=== PATIENT | female | born 1980 | race African-American/Black ===

== ENCOUNTER 2017-10-02 06:40 | Emergency (ER) | payer OTHER ==
[~2017-10-02] VITALS: Ht 157.5 cm; Wt 97.5 kg
[~2017-10-02 06:40] MED LIST: ALBUTEROL INHAL17 GM IH; BENADRYL25 MG PO; COLACE1 EAC1 PO; CONSTULOSE10 GM/152 PO; COZAAR 25 MG TA25 M2 PO; FLAGYL500 MG PO; FLEXERIL PO; HYDROCHLOROTH12.5 MG PO; IBUPROFEN 600600 M1 PO; IBUPROFEN 800800 M1 PO; IRON325 PO; LISINOPRIL20 MG PO; MACROBID 100 M100 M1 PO; MECLIZINE 25 MG25 M1; MEDROLDOSEPACK PO; NEXIUM40 MG PO; NORCO 5-325 TA1 EACH PO; PERCOCET 5-3251 EACH PO; PHENERGAN 25 MG25 M1 PO; POTASSIUM PO; PREDNISONE50 MG PO; PRENATAL; PRENATAL COMPL1 EACH PO; PROAIR HFA8.5 GM IH; ULTRAM 50MG TAB50 MG PO; ZANTAC 150MG T150 M1 PO; ZANTAC 150MG T150 MG PO; ZOFRAN ODT4 MG PO; ZPAK PO; tamiflu PO
[2017-10-02 07:05] LABS: ABSOLUTE NEUTROPHILS 7.9 thou/uL (1.4-8.2); BASOPHILS 0.7 % (0.0-2.0); EOSINOPHILS 1.4 % (0.0-3.0); HEMATOCRIT 34.4 % (37.0-47.0); HEMOGLOBIN 10.8 gm/dL (12.0-15.0); LYMPHOCYTES 22.3 % (24.0-44.0); MCH 23.3 pg (26.0-34.0); MCHC 31.4 g/dL (28.0-37.0); MCV 74.1 fL (80.0-100.0); MONOCYTES 6.1 % (1.0-8.0); PLATELET COUNT 242 thou/uL (150-400); POLYS 69.5 % (36.0-66.0); RBC 4.64 mil/uL (4.20-5.00); RDW 17.1 % (10.5-14.5); WBC 11.4 thou/uL (4.0-11.0)
[2017-10-02 07:06] LABS: URINE BILIRUBIN NEGATIVE (Negative); URINE BLOOD NEGATIVE (Negative); URINE CLARITY CLEAR; URINE COLOR YELLOW; URINE GLUCOSE-RANDOM* NEGATIVE (Negative); URINE KETONES NEGATIVE (Negative); URINE LEUKOCYTES NEGATIVE (Negative); URINE NITRITE NEGATIVE (Negative); URINE PROTEIN (DIPSTICK) NEGATIVE (Negative); URINE UROBILINOGEN 0.2 E.U./dl (0.2-1.0)
[2017-10-02 07:16] LABS: ANION GAP 7 mmol/L (7-16); BUN 10 mg/dL (7-18); CHLORIDE 104 mmol/L (98-107); CO2 28 mmol/L (21-32); CREATININE 0.8 mg/dL (0.6-1.0); GLUCOSE 114 mg/dL (74-106); SODIUM 139 mmol/L (136-145)
[2017-10-02 07:22] LABS: ALBUMIN 3.6 g/dL (3.4-5.0); DIRECT BILIRUBIN < 0.1 mg/dL (<0.1-0.3); LIPASE 160 U/L (73-393); SGOT 27 U/L (15-37); SGPT 31 U/L (30-65); TOTAL BILIRUBIN 0.2 mg/dL (<0.1-1.0); TOTAL PROTEIN 7.6 g/dL (6.4-8.2)
[2017-10-02] MEDS ORDERED: RIZATRIPTAN10 MG PO (08:26)
[2017-10-02] MEDS ORDERED: PHENERGAN 25 MG25 M1 PO (09:12)
[2017-10-02] MEDS ORDERED: PROMS25 WY RECTAL (09:12)
[2017-10-02] MEDS ORDERED: ZOFRAN ODT4 MG PO (09:12)
[2017-10-02 09:19] VITALS: BP 108/52
[2017-10-02 09:57] LABS: ANISOCYTOSIS 1+; HYPOCHROMASIA 1+; MICROCYTES SLIGHT; OVALOCYTES OCCASIONAL; POIKILOCYTOSIS 1+; TEARDROPS OCCASIONAL
== END 2017-10-02 09:20 | disposition home or self-care (01) ==
LOC: ER 06:40
PROVIDERS: Emergency Medicine
DX: R11.2 Nausea with vomiting, unspecified (principal); R10.84 Generalized abdominal pain; Z90.89 Acquired absence of other organs; Z88.5 Allergy status to narcotic agent

== ENCOUNTER 2017-10-13 06:10 | Emergency (ER) | payer OTHER ==
[~2017-10-13] VITALS: Ht 157.5 cm; Wt 97.5 kg
[~2017-10-13 06:10] MED LIST changes: +PROMS25 WY RECTAL; +RIZATRIPTAN10 MG PO
[2017-10-13] MEDS ORDERED: VALIUM5 MG PO (08:25)
[2017-10-13] MEDS ORDERED: MOBIC15 MG PO (08:25)
[2017-10-13 08:55] VITALS: BP 131/64
== END 2017-10-13 08:56 | disposition home or self-care (01) ==
LOC: ER 06:10
DX: S16.1XXA Strain of muscle, fascia and tendon at neck level, initial encounter (principal); I10 Essential (primary) hypertension; Z90.49 Acquired absence of other specified parts of digestive tract; F17.210 Nicotine dependence, cigarettes, uncomplicated; Z88.8 Allergy status to other drugs, medicaments and biological substances; V89.2XXA Person injured in unspecified motor-vehicle accident, traffic, initial encounter; Y93.89 Activity, other specified; Y92.89 Other specified places as the place of occurrence of the external cause; Y99.8 Other external cause status

== ENCOUNTER 2020-04-11 10:55 | Emergency (ER) | payer OTHER ==
[~2020-04-11] VITALS: Ht 157.5 cm; Wt 87.5 kg
[~2020-04-11 10:55] MED LIST changes: +MOBIC15 MG PO; +VALIUM5 MG PO
[2020-04-11 12:49] LABS: MCHC 30.2 g/dL (28.0-37.0); PLATELET COUNT 363 thou/uL (150-400)
[2020-04-11 12:58] LABS: ANION GAP 12 mmol/L (7-16); BUN 12 mg/dL (7-18); CHLORIDE 104 mmol/L (98-107); CO2 25 mmol/L (21-32); GLUCOSE 126 mg/dL (74-106); HEMATOCRIT 28.6 % (37.0-47.0); HEMOGLOBIN 8.6 gm/dL (12.0-15.0); MCH 19.8 pg (26.0-34.0); MCV 65.4 fL (80.0-100.0); POTASSIUM 3.4 mmol/L (3.5-5.1); RBC 4.36 mil/uL (4.20-5.00); SODIUM 141 mmol/L (136-145); TROPONIN-I <0.06 ng/mL (<0.06); WBC 15.1 thou/uL (4.0-11.0)
[2020-04-11 13:06] LABS: CALCIUM 9.2 mg/dL (8.5-10.1)
[2020-04-11 13:47] LABS: ANISOCYTOSIS 1+; HYPOCHROMASIA 2+; MICROCYTES 2+; PLATELET ESTIMATE NORMAL
[2020-04-11 14:12] LABS: URINE BILIRUBIN NEGATIVE (Negative); URINE BLOOD NEGATIVE (Negative); URINE CLARITY CLEAR; URINE COLOR YELLOW; URINE GLUCOSE-RANDOM* NEGATIVE (Negative); URINE KETONES NEGATIVE (Negative); URINE LEUKOCYTES-REFLEX NEGATIVE (Negative); URINE NITRITE-REFLEX NEGATIVE (Negative); URINE PROTEIN (DIPSTICK) NEGATIVE (Negative); URINE UROBILINOGEN 0.2 E.U./dl (0.2-1.0)
[2020-04-11] MEDS ORDERED: ULTRAM 50MG TAB50 MG PO (14:28)
[2020-04-11] MEDS ORDERED: PHENERGAN 25 MG25 M1 PO (14:28)
[2020-04-11 14:45] VITALS: BP 154/81
--- NOTE | 2020-04-12 07:34 | EKG ---
[facility] [place] [address] ELECTROCARDIOGRAM REPORT Name: WM VELEZ [id number] Admission: 04/11/20 Attend Phys: Discharge: 04/11/20 Date of : 84 Report #: [id number] THIS REPORT FOR: cc: Jolanta Tan MD, Karla L. 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
== END 2020-04-11 15:52 | disposition home or self-care (01) ==
LOC: ER 10:55 → EDBD 10:55 → ER 15:52
PROVIDERS: Nurse Practitioner
DX: R11.2 Nausea with vomiting, unspecified (principal); R10.13 Epigastric pain; I10 Essential (primary) hypertension; F17.210 Nicotine dependence, cigarettes, uncomplicated; Z90.49 Acquired absence of other specified parts of digestive tract; Z79.899 Other long term (current) drug therapy; Z88.8 Allergy status to other drugs, medicaments and biological substances

== ENCOUNTER 2021-04-02 09:20 | Inpatient (IN) | payer OTHER ==
[2021-04-02] VITALS (7 sets, daily range): BP systolic 154–218; BP diastolic 72–109
[~2021-04-02] VITALS: Ht 157.5 cm; Wt 90.3 kg
--- NOTE | ~2021-04-02 | EMS ---
[address] [address] EMS Patient Care Report Name: WM VELEZ Room #: 214-P [facility] IN M.R.#: [id number] Admission: 04/02/21 Attend Phys: Jose Marti Discharge: 04/03/21 Date of : 84 Report #: [id number] THIS REPORT FOR: //name// Report Transmitted: 04/04/2021 09:53 EMS Care Summary [place], [place]/[facility] Incident [id number] @ 04/02/2021 08:53 Incident Location [address] [place] [address] Patient WM VELEZ Female, 40 Years 1980 Patient Address [address] [place] [address] Patient History Other,Hypertension (HTN), Patient Allergies Demerol, Patient Medications Nifedipine, Labetalol, Chief Complaint Nausea and vomiting Disposition Transported No Lights/Mobile Dispatch Reason Unconscious/Fainting Transported To [facility] Narrative Arrived on scene to find our patient seated on the steps of a split level ome near the front door. Patient reported that she had awoken at approximately 0300 that morning to 8/10 epigastric abdominal pain, nausea, and vomiting. Patient denied any radiation of the pain, chest pain, or soa. Patient reported [address] [address] EMS Patient Care Report Name: WM VELEZ Room #: 214-P [facility]#: [id number] Admission: 04/02/21 Attend Phys: Gilbertsamantha Rene Kaia Discharge: 04/03/21 Date of : 84 Report #: [id number] dizziness and a possible syncopal episode, but was unsure if she had lost consciousness or fallen. Patient stated that her current symptoms were similar to a bowel obstruction she had previously. Patient stated she had taken one bowel movement the day prior. Patient reported that it was unusual for her, reporting she had much more frequent bowel movements. Patient was guarding her abdomen upon arrival. Patient had tenderness to palpation in the epigastric region of her abdomen. All abdominal quadrants soft to palpation, no masses or distention noted. Vital signs obtained, oral zofran administered and patient transported and transferred to receiving facility without change in patient condition. Initial Vitals @09:04P: 64,BP: 203/116, @09:03P: 64,R: 16,BP: 206/99,Pain: 8/10,GCS: 15,CO: 0,SpO2: 100,Revised Trauma: 12, @09:09P: 63,R: 16,BP: 189/91,Pain: 8/10,GCS: 15,CO: 0,SpO2: 100,Revised Trauma: 12, Assessments @09:00MENTAL:Event Oriented,Place Oriented,Person Oriented,Time Oriented,SKIN:HEENT:Head/Face: No Abnormalities,Neck/Airway: No Abnormalities,LUNG SOUNDS:Right Upper: HAZEL,General: Vomiting,General: Nausea,Left Upper: Other,Right Upper: Other,ABDOMEN:Right Upper: HAZEL,General: Vomiting,General: Nausea,Left Upper: Other,Right Upper: Other,PELVIS//GI:No Abnormalities,EXTREMITIES:Left Arm: No Abnormalities,Right Arm: No Abnormalities,Left Leg: No Abnormalities,Right Leg: No Abnormalities,PULSE:NEURO:No Abnormalities, Impression Vomiting Procedures @09:00 ALS Assessment Response: UnchangedSucceeded @09:07 Zofran - 4 Milligrams (mg) - Oral Response: Unchanged @09:03 3-Lead ECG Response: UnchangedSucceeded Timeline 08:52,Call Received 08:52,Dispatch Notified 08:53,Dispatched 08:54,En Route 08:58,On Scene 09:00,At Patient 09:00,ALS Assessment,Response: UnchangedSucceeded, 09:03,3-Lead ECG,Response: UnchangedSucceeded, [facility] [address] [place] [address] EMS Patient Care Report Name: WM VELEZ Room #: 214-P [facility]#: [id number] Admission: 04/02/21 Attend Phys: Jose Marti Discharge: 04/03/21 Date of : 84 Report #: [id number] 09:03,BP: 206/99 M,PULSE: 64,RR: 16 R,SPO2: 100 Ox,ETCO2: ,BG: ,PAIN: 8,GCS: 15, 09:04,BP: 203/116 M,PULSE: 64,RR: R,SPO2: Ox,ETCO2: ,BG: ,PAIN: ,GCS: , 09:06,Depart Scene 09:07,Zofran - 4 Milligrams (mg) - Oral,Response: Unchanged 09:09,BP: 189/91 M,PULSE: 63,RR: 16 R,SPO2: 100 Ox,ETCO2: ,BG: ,PAIN: 8,GCS: 15, 09:18,At Destination 09:42,Call Closed Disclaimer v1.1 Copyright 2020 [employer] This EMS Care Summary contains data elements from the applicable legal record (which may be displayed differently). It is designed to provide pertinent information for the following purposes: continuity of care, clinical quality, and state data reporting. The complete legal record is available to ED staff and administrators of the receiving hospital in [employer]'s Patient Tracker. All data is provided "as is."
[2021-04-02] MEDS ORDERED: ZOLPIDEM TARTRA10 MG PO (09:26)
[2021-04-02] MEDS ORDERED: TRANDATE 200 M200 M1 PO (09:27)
[2021-04-02] MEDS ORDERED: NIFEDIPINE ER90 MG PO (09:27)
[2021-04-02 10:22] LABS: HEMATOCRIT 35.3 % (37.0-47.0); HEMOGLOBIN 10.7 gm/dL (12.0-15.0); MCH 21.4 pg (26.0-34.0); MCHC 30.3 g/dL (28.0-37.0); MCV 70.7 fL (80.0-100.0); PLATELET COUNT 376 thou/uL (150-400); RDW 18.9 % (10.5-14.5); WBC 13.4 thou/uL (4.0-11.0)
[2021-04-02 10:36] LABS: CALCIUM 9.2 mg/dL (8.5-10.1); CREATININE 0.8 mg/dL (0.6-1.0); POTASSIUM 3.5 mmol/L (3.5-5.1)
[2021-04-02 10:47] LABS: ALBUMIN 3.7 g/dL (3.4-5.0); TOTAL BILIRUBIN 0.3 mg/dL (0.2-1.0); TOTAL PROTEIN 8.5 g/dL (6.4-8.2)
[2021-04-02 11:16] LABS: URINE BILIRUBIN NEGATIVE (Negative); URINE BLOOD NEGATIVE (Negative); URINE CLARITY CLEAR; URINE COLOR YELLOW; URINE GLUCOSE-RANDOM* NEGATIVE (Negative); URINE KETONES NEGATIVE (Negative); URINE LEUKOCYTES-REFLEX NEGATIVE (Negative); URINE NITRITE-REFLEX NEGATIVE (Negative); URINE PROTEIN (DIPSTICK) TRACE (Negative); URINE SPECIFIC GRAVITY 1.015 (1.005-1.035); URINE UROBILINOGEN 0.2 E.U./dl (0.2-1.0)
[2021-04-02 12:23] LABS: ABSOLUTE NEUTROPHILS 11.8 thou/uL (1.4-8.2)
[2021-04-02 12:25] LABS: ANISOCYTOSIS 2+; HYPOCHROMASIA 2+; MICROCYTES 1+
[2021-04-02 12:26] LABS: POIKILOCYTOSIS SLIGHT
[2021-04-02 14:34] LABS: PROTIME 10.9 Seconds (10.5-12.1)
--- NOTE | 2021-04-02 18:21 | NUR ---
PT TO THE UNIT FROM THE ED. OREINTED TO ROOM AND BEDSPACE. ASSESSMENT CHARTED - MEDS PER JUL - GIVEN FENTANYL FOR CO'S OF ABDO PAIN WITH MOD RELIEF. REGLAN INSREASE TO Q6 HOURS DUE TO NAUSEA. GIVEN HYDRALAZINE FOR ELEVATED BP 172/90 BP DOWN TO 150 SYSTOLIC POST ADMINISTRATION. PT RESTING AT THE PRESENT TIME - EMISIS APPROX 250CC. 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 NO CO'SAT THE PRESENT TIME.
[2021-04-03 04:00] VITALS: BP 186/95
[2021-04-03 05:55] LABS: HEMATOCRIT 31.9 % (37.0-47.0); HEMOGLOBIN 9.8 gm/dL (12.0-15.0); MCH 21.6 pg (26.0-34.0); MCHC 30.8 g/dL (28.0-37.0); MCV 70.2 fL (80.0-100.0); RBC 4.54 mil/uL (4.20-5.00); RDW 18.6 % (10.5-14.5); WBC 15.3 thou/uL (4.0-11.0)
[2021-04-03 06:07] LABS: CALCIUM 8.7 mg/dL (8.5-10.1); CREATININE 0.8 mg/dL (0.6-1.0)
[2021-04-03 06:09] LABS: POTASSIUM 2.9 mmol/L (3.5-5.1)
[2021-04-03 06:11] LABS: ALBUMIN 3.2 g/dL (3.4-5.0); PHOSPHORUS 3.1 mg/dL (2.6-4.7)
--- NOTE | 2021-04-03 06:56 | NUR ---
ASSUMED CARE OF PT AT 1900. PT ASSESSED TO BE AOX4 40F PRESENTING WITH ABDOMINAL PAIN FROM MILD ILEUS WITH N/V. PT RESTED THROUGHOUT MOST OF THE NIGHT WITH FEW COMPLAINTS, VSS. THROUGHOUT THE NIGHT PT WAS ABLE TO AMBULATE BY HERSELF, OXYGEN STABLE ON ROOM AIR, REGLAN GIVEN QID TO CONTROL NAUSEA, LABETALOL AND PRN HYDRALAZINE FOR HYPERTENSION, STILL UNRESOLVED WILL PASS ON TO DAY SHIFT RN. PT PAIN CONTROLLED WITH FENTANYL. PT HAS HYPOACTIVE BOWEL SOUNDS. L HAND IV CAUSING EDEMA AT SITE, HELD FLUIDS UNTIL AM TO OBTAIN BETTER ACCESS. POTASSIUM LOW IN AM WILL REPLACE PO PER COLOR CHECKER. ALL INFO PASSED ON TO DAY SHIFT RN, WILL CONT TO MONITOR.
[2021-04-03 08:42] VITALS: BP 151/101
--- NOTE | 2021-04-03 10:17 | NUR ---
Assumed care of pt this AM. Pt is A&O x4, on RA. S1 S2 present on auscultation. Lt hand IV infiltrated w/ edema. Order obtained from Dr. Marti for pt to have no IV. Plan to progress diet today, if tolerated, pt can d/c home. Pt up ad víctor in room. BP medications changed this AM for HTN. Will continue to assess pt needs throughout day.
[2021-04-03 12:18] VITALS: BP 162/107
[2021-04-03 15:19] VITALS: BP 129/74
[2021-04-03] MEDS ORDERED: TRANDATE 200 M200 M1 PO (15:24)
[2021-04-03] MEDS ORDERED: PROTONIX 20 MG20 M1 PO (15:24)
[2021-04-03] MEDS ORDERED: REGLAN 5 MG TAB5 MG PO (15:25)
[2021-04-03 15:44] VITALS: BP 129/74
[2021-04-03 16:13] VITALS: BP 129/74
--- NOTE | 2021-04-04 07:35 | EKG ---
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1980 Requested By: Bimal Gale Order Number: [id number] MD: Tre Valdivia Measurements Intervals [place] Rate: 64 P: 27 MA: 133 QRS: 21 QRSD: 95 T: 29 QT: 420 QTc: 434 Interpretive Statements Sinus rhythm Low voltage, precordial leads Baseline wander in lead(s) II,V1,V6 Compared to ECG 04/11/2020 11:55:27 Low QRS voltage now present Electronically Signed On 04-04-2021 7:35:29 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
== END 2021-04-03 16:19 | disposition home or self-care (01) | DRG 391 ==
LOC: ER 09:20 → 2N 13:33 → EROBS 13:33 → EDBD 13:33 → 2N 15:40
PROVIDERS: Emergency Medicine; ADMIT Hospitalist; ATTEND Hospitalist
DX: K20.90 Esophagitis, unspecified without bleeding (principal); R65.11 Systemic inflammatory response syndrome (SIRS) of non-infectious origin with acute organ dysfunction; K56.7 Ileus, unspecified; E87.2 Acidosis; I16.0 Hypertensive urgency; Z20.822 Contact with and (suspected) exposure to COVID-19; I10 Essential (primary) hypertension; D64.9 Anemia, unspecified; E87.6 Hypokalemia; Z79.899 Other long term (current) drug therapy; Z90.49 Acquired absence of other specified parts of digestive tract; Z88.8 Allergy status to other drugs, medicaments and biological substances; Z83.3 Family history of diabetes mellitus; Z82.49 Family history of ischemic heart disease and other diseases of the circulatory system; Z83.6 Family history of other diseases of the respiratory system; Z23 Encounter for immunization
CPT/HCPCS: 10081